=== PATIENT | female | born 1930 | race Two or more races ===

== ENCOUNTER → 2016-12-29 | Day surgery (SDC) | payer MEDICARE, OTHER ==
[2016-12-29] VITALS (13 sets, daily range): BP systolic 118–155; BP diastolic 54–71
[~2016-12-29] VITALS: Ht 149.9 cm; Wt 36.3 kg
[~2016-12-29] MED LIST: AZITHROMYCIN PO; Akten 3.5% 1ml Btl RIGHT EYE SCH; BSS 15ml BTL ONE; BSS 500ml btl ONE; Carbachol 0.01% Op Soln 1.5ml vial ONE; Dexamethasone 4mg/ml vial ONE; Diclofenac Sod 0.1% Op Soln RIGHT EYE SCH; EPINEPHrine 1mg/1ml Amp ONE; Gatifloxacin Opth Solution 0.5% RIGHT EYE SCH; LEVOTHYROXINE50 MCG ORAL; LR 1000ml ONE; Lidocaine 1% MPF 10mg/ml 5ml ONE; Midazolam 2mg/2ml Inj ONE; NS Irrig 1000ml ONE; Phenylephrine 2.5% Op Soln RIGHT EYE SCH; Povidone-Iodine 5% opth solution ONE; Propofol 10mg/ml 20ml IV ONE; RIFADIN150 MG ORAL; Sodium Hyaluronate 14 mg/ml 0.85ml ONE; Sterile Water Irrig 1000ml IRRIG ONE; Tobradex Opth Susp 2.5ml RIGHT EYE SCH; Tropicamide 1% Opth Soln RIGHT EYE SCH; ZITHROMAX250 MG ORAL; ZOLOFT25 MG ORAL; [UNRECOGNIZED DRUG - OTHER] PO; acetaZOLAMIDE 500mg Inj ONE; fentaNYL 100 mcg/2 mL IV ONE
--- NOTE | 2016-12-29 07:09 | Pre-Procedure Note/Attestation ---
Pre-Procedure Note/Attestation Complete Prior to Procedure Planned Procedure: right Procedure Narrative: cataract extraction with implant right eye Indications for Procedure Pre-Operative Diagnosis: cataract right eye Attestation I attest that I discussed the nature of the procedure; its benefits; risks and complications; and alternatives (and the risks and benefits of such alternatives ), prior to the procedure, with the patient (or the patient's legal malt liquors sales representative). I attest that, if there was a reasonable possibility of needing a blood transfusion, the patient (or the patient's legal malt liquors sales representative) was given the [facility] standardized written summary, pursuant to the Fernando [place] Blood Safety Act ([place] Health and Safety Code # 1645, as amended). I attest that I re-evaluated the patient just prior to the surgery and that there has been no change in the patient's H&P, except as documented below: FERN JIANG Dec 29, 2016 07:09
[2016-12-29 09:44] LABS: ANION GAP 12 (5-15); CALCIUM 8.5 mg/dL (8.6-10.2); CARBON DIOXIDE 29 mEQ/L (20-30); CHLORIDE 99 mEQ/L (98-107); CREATININE 0.8 mg/dL (0.5-0.9); HEMOLYSIS 4; POTASSIUM 4.3 mEQ/L (3.4-4.9); SODIUM 140 mEQ/L (135-145)
--- NOTE | 2016-12-29 11:01 | Anethesia Preoperative Eval ---
Anesthesia Pre-op PMH/ROS General Date of Evaluation: Dec 29, 2016 Time of Evaluation: 10:40 Anesthesiologist: Alejandro ASA Score: ASA 2 Mallampati Score Class I : Soft palate, uvula, fauces, pillars visible Class II: Soft palate, uvula, fauces visible Class III: Soft palate, base of uvula visible Class IV: Only hard plate visible Mallampati Classification: Class II Surgeon: tiago Diagnosis: cataract right eye Surgical Procedure: cataract extraction right eye with IOL placement Anesthesia History: none Family History: no anesthesia problems Allergies: Coded Allergies: IODINE (Verified Allergy, Severe, Rash/Hives, 12/29/16) PENICILLINS (Verified Allergy, Intermediate, rash, 10/27/16) Medications: see eMAR Past Medical History Cardiovascular: Denies: CAD, HTN, [place], arrhythmia, other, valve dz Pulmonary: Denies: COPD, ROLANDO, asthma, other Gastrointestinal/Genitourinary: Denies: CRI, ESRD, GERD, other Neurologic/Psychiatric: Reports: depression/anxiety Endocrine: Reports: hypothyroidism HEENT: Reports: cataract (R) Hematology/Immune: Denies: DVT, anemia, bleeding disorder, other Musculoskeletal/Integumentary: Denies: DDD, DJD, OA, RA, edema, other PMH Narrative: hypothyroidism, depression PSxH Narrative: cataract left eye Anesthesia Pre-op Phys. Exam Physician Exam Last Vital Signs Date Time Temp Pulse Resp B/P Pulse Ox O2 Delivery O2 Flow Rate FiO2 12/29/16 08:57 99.4 82 18 155/70 99 Room Air Constitutional: NAD Neurologic: CN 2-12 intact Cardiovascular: RRR Respiratory: CTA Gastrointestinal: S/NT/ND Airway Exam Mallampati Score: Class II MO: full ROM: full Teeth: intact Dentures: no lower, no upper Anesthesia Pre-op A/P Labs Chemistry Test 12/29/16 09:20 Sodium Level 140 mEQ/L (135-145) Potassium Level 4.3 mEQ/L (3.4-4.9) Chloride Level 99 mEQ/L (98-107) Carbon Dioxide Level 29 mEQ/L (20-30) Anion Gap 12 (5-15) Blood Urea Nitrogen 15 mg/dL (7-23) Creatinine 0.8 mg/dL (0.5-0.9) Estimat Glomerular Filtration Rate mL/min (>60) Glucose Level 96 mg/dL (74-106) Calcium Level 8.5 mg/dL (8.6-10.2) BRIAN SORTO D.O. Dec 29, 2016 11:01
--- NOTE | 2016-12-29 12:22 | Immediate Post-Op Evaluation ---
Immediate Post-Op Evalulation Immediate Post-Op Evalulation Procedure: cataract extraction right eye with IOL placement Date of Evaluation: Dec 29, 2016 Time of Evaluation: 12:21 IV Fluids: 400ml Blood Products: none Estimated Blood Loss: minimal Urinary Output: due to void Blood Pressure Systolic: 133 Blood Pressure Diastolic: 71 Pulse Rate: 74 Respiratory Rate: 16 O2 Sat by Pulse Oximetry: 99 Temperature (Fahrenheit): 98 Pain Score (1-10): 0 Nausea: No Vomiting: No Complications none Patient Status: awake, reacts Hydration Status: adequate Drug: n/a BRIAN BOJORQUEZ D.O. Dec 29, 2016 12:22
--- NOTE | 2016-12-29 12:26 | 48 Hour Post Anesthesia Eval ---
Post Anesthesia Evaluation Procedure: cataract extraction right eye with IOL placement Date of Evaluation: Dec 29, 2016 Time of Evaluation: 12:25 Blood Pressure Systolic: 132 0: 66 Pulse Rate: 73 Respiratory Rate: 16 Temperature (Fahrenheit): 98 O2 Sat by Pulse Oximetry: 98 Airway: patent Nausea: No Vomiting: No Pain Intensity: 0 Hydration Status: adequate Cardiopulmonary Status: stable Mental Status/LOC: patient returned to baseline Follow-up Care/Observations: as per surgeon Post-Anesthesia Complications: none Follow-up care needed: N/A BRIAN BOJORQUEZ D.O. Dec 29, 2016 12:26
--- NOTE | 2016-12-29 12:35 | Brief Operative Note ---
Immediate Post Operative Note Operative Note Pre-op Diagnosis: cataract right eye Procedure: phacoemulsification of cataract with implant right eye Post-op Diagnosis: same as pre-op Surgeon: frederic ordoñez Manager Customer Service: none Anesthesiologist: mariano blair Anesthesia: MAC Specimen: none Complications: yes - very hard nucleus, split in posterior capsule and nucleus dropped into the posterior chamber, sulcus fixated PCIOL placed Condition: stable Estimated Blood Loss: none Drains: none Implant(s) used?: Yes FREDERIC ORDOÑEZ Dec 29, 2016 12:34
--- NOTE | 2016-12-30 14:49 | Operative Note - Dictated ---
DATE OF OPERATION: 12/29/2016 PREOPERATIVE DIAGNOSIS: Dense nuclear sclerotic cataract, right eye. POSTOPERATIVE DIAGNOSIS: Dense nuclear sclerotic cataract, right eye. PROCEDURE: Phacoemulsification, cataract, right eye, with placement of posterior intraocular lens. SURGEON: Bry Valadez M.D. ([facility]) CHANNEL CEMENTER INSOLE MACHINE: None. ANESTHESIA: MAC/topical. ANESTHESIOLOGIST: Blas Allen D.O. INDICATION FOR PROCEDURE: Poor vision, right eye. DESCRIPTION OF FINDINGS: Dense nuclear sclerotic cataract, right eye. DESCRIPTION OF PROCEDURE: The patient received a topical anesthetic block consisting of 3.5% Akten eye drops. The eye was then prepped and draped in the usual manner. A lid speculum was placed. An operating Zeiss microscope was positioned. A temporal corneal groove was then made with the antonio blade. A SuperSharp blade made a stab incision at the 12 o'clock position. A 0.1 mL of 1% non-preservative intracameral lidocaine was injected. Healon was instilled into the anterior chamber and a 2.5/2.8 mm trapezoidal antonio blade was used to complete the temporal corneal wound. A cystotome was used to create an anterior capsular flap. Utrata forceps was used to complete the capsulorrhexis. BSS on a cannula was used to hydrodissect the nucleus. An attempt to remove the lens using a phaco-fracture technique was initiated. Due to the density of the lens, there was a split in the anterior and posterior capsule. The lens dropped into the posterior chamber. An anterior vitrectomy was performed with the avit. The remaining cortical material was completely removed with the I/A. The wound was checked and found to be free of vitreous. The anterior chamber was refilled with Healon. An Chivo foldable 3-piece posterior chamber intraocular lens, model MA60AC, power 21.5 diopter, serial number [id number] was placed in the injector. The lens was placed into the ciliary sulcus. The trailing haptic was placed with bent long Casper forceps. A Sinskey hook was used to dial the lens into position. The lens was checked and found to be well supported. Miostat was instilled into the anterior chamber for miosis. The Healon was irrigated with BSS on a cannula. The wound was hydrated with BSS on a cannula. The wound was checked and found to be watertight. The lid speculum was removed, and a subconjunctival injection of dexamethasone and gentamicin was given. Lid speculum was removed, and a drop of TobraDex and Zymaxid was placed. A clear plastic shield was taped over the eye. The patient tolerated the procedure well and left the operating room in good condition. She will return in the future for her lensectomy from the posterior chamber. Bry Valadez M.D. ([facility]) DR: LUPILLO JOB#: [id number] CC: TIAGO
== END | disposition home or self-care (01) ==
LOC: SUR 07:31
DX: H25.11 Age-related nuclear cataract, right eye (principal); N18.3 Chronic kidney disease, stage 3 (moderate); E78.5 Hyperlipidemia, unspecified; K58.9 Irritable bowel syndrome, unspecified; M81.0 Age-related osteoporosis without current pathological fracture; M41.9 Scoliosis, unspecified; E03.9 Hypothyroidism, unspecified; A31.0 Pulmonary mycobacterial infection; F32.9 Major depressive disorder, single episode, unspecified; F41.9 Anxiety disorder, unspecified; Z79.899 Other long term (current) drug therapy; Z88.0 Allergy status to penicillin; Z91.041 Radiographic dye allergy status
CPT/HCPCS: 36415; 66984; 80048; J0171; J1100; J1120; J2250; J2704; J3010; J7120; V2632; 94003; 94150

== ENCOUNTER → 2016-12-30 | Day surgery (SDC) | payer MEDICARE, OTHER ==
[~2016-12-30] VITALS: Ht 152.4 cm; Wt 36.3 kg
[2016-12-30] VITALS (8 sets, daily range): BP systolic 107–155; BP diastolic 50–78
[~2016-12-30] MED LIST changes: -Akten 3.5% 1ml Btl RIGHT EYE SCH; +Atropine Inj 1mg/10ml Syr IV PRN; +Atropine Sulfate 3.5gm Oint ONE; +Bupivacaine 0.75% 30ml vial INJ ONE; -Carbachol 0.01% Op Soln 1.5ml vial ONE; +Cyclopentolate 1% Opth Sol RIGHT EYE ONE; -Diclofenac Sod 0.1% Op Soln RIGHT EYE SCH; +DiphenhydrAMINE 50mg/ml Inj IVP PRN; +Flurbiprofen 0.03% Opth Sol 2.5ml RIGHT EYE ONE; +Gatifloxacin Opth Solution 0.5% RIGHT EYE ONE; -Gatifloxacin Opth Solution 0.5% RIGHT EYE SCH; +Hydromorphone 0.5mg/0.5ml inj IVP PRN; +Kenalog-10 5ml Inj ONE; +Kenalog-40 1ml Vial ONE; +Ketorolac 30mg Inj IV PRN; +Ketorolac 60mg Inj IV PRN; +LORazepam Inj 2mg/ml 1ml IV PRN; +LR 1000ml 1,000 ML IVLG SCH; +Labetalol 5mg/ml 20ml vial IV PRN; +Lidocaine 2% MPF 5ml Vial INJ ONE; +Maxitrol Opth Oint 3.5gm ONE; +Meperidine 25mg/ml Inj IV PRN; +Metoclopramide 10mg/2ml Inj IVP PRN; +Midazolam 2mg/2ml Inj IVP PRN; +Norco 5mg/325mg tab ORAL PRN; +Norco 7.5mg/325mg tab ORAL PRN; +Oxycodone/Acetaminophen 5-325 ORAL PRN; +Phenylephrine 2.5% Op Soln RIGHT EYE ONE; -Phenylephrine 2.5% Op Soln RIGHT EYE SCH; +Pilocarpine 4% Opth Soln ONE; -Povidone-Iodine 5% opth solution ONE; +Pred Forte 1% Opth Susp 1ml RIGHT EYE ONE; -Sodium Hyaluronate 14 mg/ml 0.85ml ONE; +Tetracaine 0.5% Opth Soln ONE; -Tobradex Opth Susp 2.5ml RIGHT EYE SCH; +Triamcinolone 40mg/ml PF Vial ONE; -Tropicamide 1% Opth Soln RIGHT EYE SCH; -acetaZOLAMIDE 500mg Inj ONE; -fentaNYL 100 mcg/2 mL IV ONE; +fentaNYL 100 mcg/2 mL IV PRN
[2016-12-30 15:52] LABS: BASOPHILS % (AUTO) 0.9 % (0.0-2.0); EOSINOPHILS % (AUTO) 0.2 % (0.0-3.0); LYMPHOCYTES % (AUTO) 15.6 % (20.0-45.0); MEAN CORPUSCULAR HGB CONC 33.6 G/DL (32.0-36.0); MEAN CORPUSCULAR VOLUME 95 FL (80-99); MONOCYTES % (AUTO) 3.7 % (1.0-10.0); NEUTROPHILS % (AUTO) 79.7 % (45.0-75.0); PLATELET COUNT 171 K/UL (150-450); RED BLOOD COUNT 4.05 M/UL (4.20-5.40); RED CELL DISTRIBUTION WIDTH 13.3 % (11.6-14.8); WHITE BLOOD COUNT 6.2 K/UL (4.8-10.8)
[2016-12-30 16:05] LABS: ALANINE AMINOTRANSFERASE 12 U/L (3-33); ALBUMIN/GLOBULIN RATIO 1.4 (1.0-2.7); ANION GAP 15 (5-15); ASPARTATE AMINO TRANSFERASE 29 U/L (5-40); CALCIUM 8.7 mg/dL (8.6-10.2); CARBON DIOXIDE 21 mEQ/L (20-30); CHLORIDE 98 mEQ/L (98-107); CREATININE 0.9 mg/dL (0.5-0.9); HEMOLYSIS 109; POTASSIUM 4.7 mEQ/L (3.4-4.9); SODIUM 134 mEQ/L (135-145); TOTAL PROTEIN 6.7 g/dL (6.6-8.7)
--- NOTE | 2016-12-30 17:18 | Emergency Room Report ---
History of Present Illness General Chief Complaint: Eye Problems Source: Patient, Family Member Present Illness HPI 86-year-old female sent to ED for evaluation. Patient referred here by Dr. Pappas for surgery. Patient had cataract surgery yesterday on her right eye. She is having continued pain to the right eye. Seen by Dr. Pappas today and patient is scheduled to have another procedure today. Patient was sent here with instructions for medications prior to surgery. Patient notes pain to the right eye, 5/10, sharp, nonradiating. No other aggravating or relieving factors. Denies fevers chills. Notes decreased visual acuity the right eye. No other aggravating relieving factors. Denies any other associated symptoms Allergies: Coded Allergies: IODINE (Verified Allergy, Severe, Rash/Hives, 12/29/16) PENICILLINS (Verified Allergy, Intermediate, rash, 10/27/16) Patient History Past Medical History: none Past Surgical History: other - eye surgery Pertinent Family History: none Social History: Denies: alcohol use, drug use, smoking Now: No Immunizations: UTD Reviewed Nursing Documentation: PMH: Agreed, PSxH: Agreed Nursing Documentation-PMH Past Medical History: No History, Except For Hx Cancer: No Hx Gastrointestinal Problems: Yes Hx Neurological Problems: No Review of Systems All Other Systems: negative except mentioned in HPI Physical Exam Vital Signs Date Time Temp Pulse Resp B/P Pulse Ox O2 Delivery O2 Flow Rate FiO2 12/30/16 14:26 98.1 65 20 155/78 97 Room Air Sp02 EP Interpretation: reviewed, normal General Appearance: no apparent distress, alert, GCS 15, non-toxic Head: normocephalic, atraumatic Eyes: right eye other - injected conjunctiva, right eye visual acuity - decreased visual acuity, bilateral eye PERRL, bilateral eye normal inspection ENT: normal ENT inspection Neck: normal inspection Respiratory: chest non-tender, lungs clear, normal breath sounds, speaking full sentences Cardiovascular #1: regular rate, rhythm, no edema Gastrointestinal: normal inspection Rectal: deferred Genitourinary: no CVA tenderness Musculoskeletal: normal inspection Neurologic: alert, oriented x3, responsive, motor strength/tone normal, sensory intact, speech normal Psychiatric: normal inspection Skin: normal inspection Lymphatic: normal inspection Medical Decision Making Diagnostic Impression: Primary Impression: Cataract fragments in right eye following surgery ER Course 86-year-old female referred to ED for eye surgery. Status post cataract surgery yesterday Differential-postop complication, cataract fragment, postoperative infection Patient placed on stretcher. After initial history and physical I ordered labs , IV fluids. Discussed case with Dr. Pappas; she is scheduled today for a vitrectomy and to retrieve fragments. Multiple opthalmic medications were ordered and given to patient preoperatively labs unremarkable diagnosis - cataract fragments in right eye following surgery patient taken to OR Labs Test 12/30/16 15:34 White Blood Count 6.2 K/UL (4.8-10.8) Red Blood Count 4.05 M/UL (4.20-5.40) Hemoglobin 12.9 G/DL (12.0-16.0) Hematocrit 38.5 % (37.0-47.0) Mean Corpuscular Volume 95 FL (80-99) Mean Corpuscular Hemoglobin 32.0 PG (27.0-31.0) Mean Corpuscular Hemoglobin Concent 33.6 G/DL (32.0-36.0) Red Cell Distribution Width 13.3 % (11.6-14.8) Platelet Count 171 K/UL (150-450) Mean Platelet Volume 9.0 FL (6.5-10.1) Neutrophils (%) (Auto) 79.7 % (45.0-75.0) Lymphocytes (%) (Auto) 15.6 % (20.0-45.0) Monocytes (%) (Auto) 3.7 % (1.0-10.0) Eosinophils (%) (Auto) 0.2 % (0.0-3.0) Basophils (%) (Auto) 0.9 % (0.0-2.0) Sodium Level 134 mEQ/L (135-145) Potassium Level 4.7 mEQ/L (3.4-4.9) Chloride Level 98 mEQ/L (98-107) Carbon Dioxide Level 21 mEQ/L (20-30) Anion Gap 15 (5-15) Blood Urea Nitrogen 12 mg/dL (7-23) Creatinine 0.9 mg/dL (0.5-0.9) Estimat Glomerular Filtration Rate mL/min (>60) Glucose Level 107 mg/dL (74-106) Calcium Level 8.7 mg/dL (8.6-10.2) Total Bilirubin 0.3 mg/dL (0.0-1.2) Aspartate Amino Transf (AST/SGOT) 29 U/L (5-40) Alanine Aminotransferase (ALT/SGPT) 12 U/L (3-33) Alkaline Phosphatase 94 U/L (35-104) Total Protein 6.7 g/dL (6.6-8.7) Albumin 4.0 g/dL (3.5-5.2) Globulin 2.7 g/dL Albumin/Globulin Ratio 1.4 (1.0-2.7) Last Vital Signs Date Time Temp Pulse Resp B/P Pulse Ox O2 Delivery O2 Flow Rate FiO2 12/30/16 14:45 98.1 20 155/78 97 Room Air 12/30/16 14:26 65 Status: improved Disposition: ADMITTED INPATIENT Condition: Serious Referrals: NON PHYSICIAN (PCP) ADILENE LINARES M.D. Dec 30, 2016 17:18
--- NOTE | 2016-12-30 18:36 | Anethesia Preoperative Eval ---
Anesthesia Pre-op PMH/ROS General Date of Evaluation: Dec 30, 2016 Time of Evaluation: 18:01 Anesthesiologist: Jose ASA Score: ASA 3 Mallampati Score Class I : Soft palate, uvula, fauces, pillars visible Class II: Soft palate, uvula, fauces visible Class III: Soft palate, base of uvula visible Class IV: Only hard plate visible Mallampati Classification: Class II Surgeon: Mian Diagnosis: Pain Eye Surgical Procedure: Vitrectomy OD Anesthesia History: none Family History: no anesthesia problems Allergies: Coded Allergies: IODINE (Verified Allergy, Severe, Rash/Hives, 12/29/16) PENICILLINS (Verified Allergy, Intermediate, rash, 10/27/16) Medications: see eMAR Past Medical History Cardiovascular: Reports: HTN, other - HL Neurologic/Psychiatric: Reports: depression/anxiety Endocrine: Reports: hypothyroidism HEENT: Reports: cataract (L), cataract (R) Musculoskeletal/Integumentary: Reports: OA, other - Scoliosis PSxH Narrative: Cat IOL OD, OS Appendectomy Anesthesia Pre-op Phys. Exam Physician Exam Last Vital Signs Date Time Temp Pulse Resp B/P Pulse Ox O2 Delivery O2 Flow Rate FiO2 12/30/16 18:12 98.1 71 20 137/67 97 Room Air Constitutional: NAD Neurologic: CN 2-12 intact Cardiovascular: RRR Respiratory: CTA Gastrointestinal: S/NT/ND Airway Exam Mallampati Score: Class II MO: limited ROM: limited Teeth: intact Anesthesia Pre-op A/P Labs Hematology Test 12/30/16 15:34 White Blood Count 6.2 K/UL (4.8-10.8) Red Blood Count 4.05 M/UL (4.20-5.40) L Hemoglobin 12.9 G/DL (12.0-16.0) Hematocrit 38.5 % (37.0-47.0) Mean Corpuscular Volume 95 FL (80-99) Mean Corpuscular Hemoglobin 32.0 PG (27.0-31.0) H Mean Corpuscular Hemoglobin Concent 33.6 G/DL (32.0-36.0) Red Cell Distribution Width 13.3 % (11.6-14.8) Platelet Count 171 K/UL (150-450) Mean Platelet Volume 9.0 FL (6.5-10.1) Neutrophils (%) (Auto) 79.7 % (45.0-75.0) H Lymphocytes (%) (Auto) 15.6 % (20.0-45.0) L Monocytes (%) (Auto) 3.7 % (1.0-10.0) Eosinophils (%) (Auto) 0.2 % (0.0-3.0) Basophils (%) (Auto) 0.9 % (0.0-2.0) Chemistry Test 12/30/16 15:34 Sodium Level 134 mEQ/L (135-145) L Potassium Level 4.7 mEQ/L (3.4-4.9) Chloride Level 98 mEQ/L (98-107) Carbon Dioxide Level 21 mEQ/L (20-30) Anion Gap 15 (5-15) Blood Urea Nitrogen 12 mg/dL (7-23) Creatinine 0.9 mg/dL (0.5-0.9) Estimat Glomerular Filtration Rate mL/min (>60) Glucose Level 107 mg/dL (74-106) H Calcium Level 8.7 mg/dL (8.6-10.2) Total Bilirubin 0.3 mg/dL (0.0-1.2) Aspartate Amino Transf (AST/SGOT) 29 U/L (5-40) Alanine Aminotransferase (ALT/SGPT) 12 U/L (3-33) Alkaline Phosphatase 94 U/L (35-104) Total Protein 6.7 g/dL (6.6-8.7) Albumin 4.0 g/dL (3.5-5.2) Globulin 2.7 g/dL Albumin/Globulin Ratio 1.4 (1.0-2.7) Risk Assessment & Plan Assessment: ASA 3 Plan: GA Status Change Before Surgery: Charles Mosley MD Dec 30, 2016 18:36
--- NOTE | 2016-12-30 18:59 | 48 Hour Post Anesthesia Eval ---
Post Anesthesia Evaluation Procedure: Vitrectomy OD Date of Evaluation: Dec 30, 2016 Time of Evaluation: 22:16 Blood Pressure Systolic: 171 0: 87 Pulse Rate: 74 Respiratory Rate: 18 Temperature (Fahrenheit): 98.2 O2 Sat by Pulse Oximetry: 100 Airway: patent Nausea: No Vomiting: No Pain Intensity: 1 Hydration Status: adequate Cardiopulmonary Status: Stable Mental Status/LOC: patient returned to baseline Follow-up Care/Observations: 0 Post-Anesthesia Complications: 0 Follow-up care needed: ready to discharge Charles Garcia MD Dec 30, 2016 18:59
--- NOTE | 2016-12-30 18:59 | Immediate Post-Op Evaluation ---
Immediate Post-Op Evalulation Immediate Post-Op Evalulation Procedure: Vitrectomy OD Date of Evaluation: Dec 30, 2016 Time of Evaluation: 20:15 IV Fluids: 300 LR Blood Products: 0 Estimated Blood Loss: 1 Urinary Output: 0 Blood Pressure Systolic: 86 Blood Pressure Diastolic: 47 Pulse Rate: 59 Respiratory Rate: 16 O2 Sat by Pulse Oximetry: 100 Temperature (Fahrenheit): 97.9 Pain Score (1-10): 1 Nausea: No Vomiting: No Complications 0 Patient Status: awake, reacts, patent, none Hydration Status: adequate Charles Garcia MD Dec 30, 2016 18:59
--- NOTE | 2016-12-31 10:26 | Pre-Procedure Note/Attestation ---
Pre-Procedure Note/Attestation Complete Prior to Procedure Planned Procedure: right Procedure Narrative: PPV, removal of retained lens fragments by fragmentation, Kenalog injection Indications for Procedure Pre-Operative Diagnosis: Retained lens fragments R eye Attestation I attest that I discussed the nature of the procedure; its benefits; risks and complications; and alternatives (and the risks and benefits of such alternatives ), prior to the procedure, with the patient (or the patient's legal fulfillment representative). I attest that, if there was a reasonable possibility of needing a blood transfusion, the patient (or the patient's legal fulfillment representative) was given the [facility] standardized written summary, pursuant to the [place] Blood Safety Act ([place] Health and Safety Code # 1645, as amended). I attest that I re-evaluated the patient just prior to the surgery and that there has been no change in the patient's H&P, except as documented below: TENA ROSS Dec 31, 2016 10:26
--- NOTE | 2016-12-31 10:29 | Brief Operative Note ---
Immediate Post Operative Note Operative Note Chief Complaint: Blurred vision and pain R eye Pre-op Diagnosis: Retained lens fragments R eye Procedure: PPV, formation and closure of lateral canthotomy, fragmentation of retained lens material, Kenalog injection, reinforcement of cataract wound R eye Post-op Diagnosis: same as pre-op Surgeon: jonathan Anesthesiologist: Nixon Anesthesia: MAC Specimen: none Complications: none Condition: stable Estimated Blood Loss: none Drains: none Implant(s) used?: No TENA ROSS Dec 31, 2016 10:29
--- NOTE | 2016-12-31 12:19 | Operative Note - Dictated ---
DATE OF OPERATION: 12/30/2016 PREOPERATIVE DIAGNOSIS: Retained lens material with elevated pressure, right eye. POSTOPERATIVE DIAGNOSIS: Retained lens material with elevated pressure, right eye. PROCEDURES: 1. Pars plana vitrectomy. 2. Fragmentation of the retained lens material. 3. Re-enforced the cataract wound. 4. Lateral canthotomy placement and closure. 5. Kenalog injection all on the right eye. SURGEON: Javed Pappas M.D. PLASTERER ROUGH: None. ANESTHESIA: Local with sedation. ANESTHESIOLOGIST: Dr. Garcia. JUSTIFICATION FOR SURGERY: This 86-year-old lady underwent cataract surgery on yesterday during which time there was posterior capsular rupture and loss of nuclear cortical material. Because of inflammation and pressure elevation she was admitted for an immediate vitrectomy. BRIEF NOTE: The patient brought to the operative room, placed on operating room table in supine position. After a time-out was performed and agreed upon by the staff and initial monitoring secured by Dr. Garcia. Retrobulbar and Van Lint blocks were given to the right eye in standard way. She was then prepped and draped in normal manner. A lid speculum was inserted into the right eye. Using a 23-gauge trocar system cannulas were placed in all except infranasal quadrant. In the supratemporal quadrant a cutdown through conjunctiva and tenons was made for later enlargement of the sclerotomy to accommodate the fragmatome. Vitrectomy was begun posterior to the lens implant. Inherent the vitreous was removed followed by additional cortical debris. It was noted that the wound temporally from the cataract was peeled to provide an adequate seal so 2 interrupted sutures of 2-0 nylon were placed here and the knots rotated posteriorly. When the peripheral and posterior vitrectomy had been completed, and cortical material removed from the large portion of nucleus. The superotemporal cannula was removed and the wound enlarged to 20-gauge size with a 20-gauge MVR blade. The fragmatome was then inserted and with careful and gentle fragmentation and suction of the remaining nuclear remnants were completely removed without damage to the posterior segment. Kenalog was used to aid in visualization of the peripheral vitreous to eliminate traction. Vitrectomy was continued with removal of this peripheral vitreous. Scleral depression was done. No peripheral breaks, tears, or detachments were seen. The fragmatome vitrector were removed from the field and the superotemporal sclerotomy was closed with 8-0 Vicryl suture. The overlying conjunctiva was closed with a suture as well. A lateral canthotomy, which had been performed early in the procedure roughly 4 mm in length was then closed with interrupted sutures of 0 Vicryl. The remaining infusion line and the supranasal cannula were removed. Single suture was placed across the infusion site. The sclerotomy supranasal was noted to be self-sealing. Subconjunctival Decadron and gentamicin were then injected and Maxitrol and atropine ointments were instilled. The eye was patched and shielded. The patient taken to recovery in excellent condition. There were no complications. Javed Pappas M.D. DR: Tanvi JOB#: [id number] CC: Javed Pappas M.D.
--- NOTE | 2017-01-17 15:58 | Pre-op HX & Phy Repo 2 SIG ---
DATE OF ADMISSION: 12/30/2016 DATE OF SURGERY: 12/30/2016 PREOPERATIVE DIAGNOSIS: Retained lens material, right eye with elevated pressure. BRIEF NOTE: This is the second [facility] admission for the patient who was admitted yesterday for cataract extraction on the right eye. During the procedure surgeon noted loss of the nucleus and other lens material posteriorly. The lens was implanted in the sulcus of the posterior dislocated material was of necessity left. On examination today, there is significant inflammation so the patient is admitted for emergency vitrectomy with fragmentation of retained lens material. PAST OCULAR HISTORY: Remarkable for similar cataract extraction done on the left eye in 2016 without incident. PAST MEDICAL HISTORY: Remarkable for prior lung infection. She is on azithromycin, ethambutol, and rifampin. She does not smoke or drink. She has an allergy to penicillin and iodine. PHYSICAL EXAMINATION: Best vision at the of time admission was counting fingers at 2 feet in the right eye and 20/40 +2 on the left. The pressure on the right was over 50. Left eye normal. The anterior segment on the right showed 1+ hyperemia. There was 1+ flare in the anterior chamber without evidence of infection. The pupil dilated poorly. The lens implant was in position. The left anterior segment showed a lens implant well positioned. Fundus examination of the right eye was difficult, but there appeared to be residual lens material. An ultrasound done at that visit confirmed this. The left fundus appeared benign. General physical examination was done by the patient's a own manager hospice and is available a computerized notes. ASSESSMENT: Retained lens material with elevated pressure right eye. PLAN: The plan is to perform a pars plana vitrectomy with fragmentation removal of retained lens material and injection of Kenalog. The risks and benefits surgery gone over the patient with potential for infection, hemorrhage, worsening of the glaucoma, retinal detachment, remote possibility of loss of the eye. The risk of anesthesia was discussed. The patient understands and consents to surgery to be performed this afternoon. Javed Pappas M.D. DR: Patricia JOB#: [id number] CC: TIAGO
== END | disposition home or self-care (01) ==
LOC: EMR 14:59 → SUR 18:02 → EMR 18:12
DX: H59.021 Cataract (lens) fragments in eye following cataract surgery, right eye (principal); Y83.8 Other surgical procedures as the cause of abnormal reaction of the patient, or of later complication, without mention of misadventure at the time of the procedure; Y92.89 Other specified places as the place of occurrence of the external cause; I12.9 Hypertensive chronic kidney disease with stage 1 through stage 4 chronic kidney disease, or unspecified chronic kidney disease; N18.3 Chronic kidney disease, stage 3 (moderate); E78.5 Hyperlipidemia, unspecified; E03.9 Hypothyroidism, unspecified; A31.0 Pulmonary mycobacterial infection; F32.9 Major depressive disorder, single episode, unspecified; F41.9 Anxiety disorder, unspecified; M19.90 Unspecified osteoarthritis, unspecified site; M41.9 Scoliosis, unspecified; M81.0 Age-related osteoporosis without current pathological fracture; K58.9 Irritable bowel syndrome, unspecified; Z88.0 Allergy status to penicillin; Z91.041 Radiographic dye allergy status
CPT/HCPCS: 36415; 66250; 66852; 80053; 85025; 99285; J0171; J1100; J2250; J2704; J3301; J3470; J3490; J7120; 94003; 94150; J3300